=== PATIENT | male | born 1975 | race Caucasian/White ===

== ENCOUNTER 2017-11-01 15:00 | Emergency (ER) | payer OTHER, SELFPAY ==
[2017-11-01] MEDS ORDERED: TYLENOL 325 MG PO STA (15:24)
[2017-11-01] MEDS ORDERED: TYLENOL 325 MG ONE (15:26)
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
[2017-11-01 17:08] VITALS: BP 140/82; PULSE 88; O2SAT 98
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
== END 2017-11-01 17:10 | disposition home or self-care (01) ==
LOC: ED 15:00
DX: S06.0X9A Concussion with loss of consciousness of unspecified duration, initial encounter (principal); S00.83XA Contusion of other part of head, initial encounter; Y35.811A Legal intervention involving manhandling, law enforcement official injured, initial encounter
CPT/HCPCS: 70450; 70486; 99283; 99284; A9270-GY

== ENCOUNTER 2020-02-19 11:35 | Emergency (ER) | payer BC ==
[2020-02-19] MEDS ORDERED: XYLOCAINE 1% HCL 20 ML MDV ONE ×2 (11:55→12:13)
[2020-02-19 12:11] VITALS: BP 148/82; PULSE 84
[2020-02-19 12:13] VITALS: O2SAT 98
--- NOTE | 2020-02-19 12:13 | ERPHSYRPT ---
- History of Present Illness Time Seen by Provider: 02/19/20 11:50 Source: patient Exam Limitations: no limitations Patient Subjective Stated Complaint: Fish hook in leg Triage Nursing Assessment: Patient ambulated back to ED and transferred self to bed. Patient A+O X3. Patient's skin pink, warm and dry. Patient complains of a fish hook in back of right thigh. Patient states the hook was removed but there is still a part inside leg. Small raised area noted. Patient denies pain or discomfort. Physician History: fish hook Left thigh Timing/Duration: today Quality: painful Severity: moderate Location: extremities Possible Causes: no cause identified Associated Symptoms: denies symptoms Allergies/Adverse Reactions: acetaminophen [From Vicodin] Adverse Reaction (Severe, Verified 02/19/20 11:42) Vomiting hydrocodone [From Vicodin] Adverse Reaction (Severe, Verified 02/19/20 11:42) Vomiting Home Medications: Citalopram Hydrobromide [Celexa] 40 mg PO DAILY 02/16/12 [History] lisinopriL [Lisinopril] 1 tab PO DAILY 02/19/20 [History] Hx Tetanus, Diphtheria Vaccination/Date Given: Yes (3 years ago) Hx Influenza Vaccination/Date Given: No Hx Pneumococcal Vaccination/Date Given: No Immunizations Up to Date: Yes Travel Risk - International Travel Have you traveled outside of the country in past 3 weeks: No Have you or anyone close to you been diagnosed with or: No Do your reside in a community with a known COVID-19 case?: Yes If Yes where:: [facility] - Coronavirus Screening Has patient experienced Coronavirus symptoms: No - Review of Systems Constitutional: No Fever, No Chills Eyes: No Symptoms Ears, Nose, & Throat: No Symptoms Respiratory: No Cough, No Dyspnea Cardiac: No Chest Pain, No Edema, No Syncope Abdominal/Gastrointestinal: No Abdominal Pain, No Nausea, No Vomiting, No Diarrhea Genitourinary Symptoms: No Dysuria Musculoskeletal: No Back Pain, No Neck Pain Skin: No Rash Neurological: No Dizziness, No Focal Weakness, No Sensory Changes Psychological: No Symptoms Endocrine: No Symptoms All Other Systems: Reviewed and Negative - Past Medical History Pertinent Past Medical History: No Neurological History: No Pertinent History ENT History: No Pertinent History Cardiac History: No Pertinent History Respiratory History: No Pertinent History Endocrine Medical History: No Pertinent History Musculoskeletal History: No Pertinent History GI Medical History: Hernia History: No Pertinent History Psycho-Social History: No Pertinent History Male Reproductive Disorders: No Pertinent History Other Medical History: pt states he is not bipolar or depressed. His mother passed and he states he took it very hard. he was put on celexa for that not because he has any mental illness. - Past Surgical History Past Surgical History: No - Social History Smoking Status: Current every day smoker How long have you smoked: 5 years Exposure to second hand smoke: Yes Drug Use: none Patient Lives Alone: No Significant Family History: no pertinent family hx - Nursing Vital Signs Nursing Vital Signs: Initial Vital Signs Temperature 98.0 F 02/19/20 11:44 Pulse Rate 109 H 02/19/20 11:44 Respiratory Rate 18 02/19/20 11:44 Blood Pressure 122/83 02/19/20 11:44 O2 Sat by Pulse Oximetry 98 02/19/20 11:44 Pain Scale Pain Intensity 0 - Physical Exam General Appearance: no apparent distress, alert Eye Exam: PERRL/EOMI, eyes nml inspection Ears, Nose, Throat Exam: normal ENT inspection, pharynx normal, moist mucous membranes Neck Exam: normal inspection, non-tender, supple, full range of motion Respiratory Exam: normal breath sounds, lungs clear, No respiratory distress Cardiovascular Exam: regular rate/rhythm, normal heart sounds Gastrointestinal/Abdomen Exam: soft, mass, No tenderness Back Exam: normal inspection, normal range of motion, No CVA tenderness, No vertebral tenderness Extremity Exam: normal inspection, normal range of motion Neurologic Exam: alert, oriented x 3, cooperative, normal mood/affect, sensation nml, No motor deficits Skin Exam: normal color, warm, dry, other (FB embedded in L posterior thigh) SpO2: 98 Procedures - Laceration/Wound Repair Left Lower Thigh Wound Location: Left, upper leg Wound Length (cm): 1 (Fish hook embedded L posterior thigh) Wound's Depth, Shape: superficial Wound Explored: foreign body removed Irrigated: Yes Anesthesia: 1% Lidocaine Volume Anesthetic (ccs): 10 Wound Debrided: minimal Wound Repaired With: sutures Suture Size/Type: 4-0, ethilon Number of Sutures: 1 Layer Closure?: No - Course Nursing assessment & vital signs reviewed: Yes Ordered Tests: Medication Summary Discontinued Medications Generic Name Dose Route Start Last Admin Trade Name Freq PRN Reason Stop Dose Admin Lidocaine HCl Confirm 02/19/20 11:55 Xylocaine 1% Hcl 20 Ml Mdv Administered 02/19/20 11:56 Dose 10 ml .ROUTE .STK-MED ONE - Progress Progress: improved - Departure Departure Disposition: Home Clinical Impression: Fish hook injury of left lower leg Condition: Stable Critical Care Time: No Referrals: JAMARI SIMEON [Primary Care Provider] - Instructions: Removal of Foreign Body in Skin Prescriptions: Cephalexin Mh 500 mg [Keflex 500 mg] 500 mg PO TID #21 capsule
[2020-02-19] MEDS ORDERED: XYLOCAINE 1% HCL 20 ML MDV IJ ONE ×2 (12:18→12:19)
== END 2020-02-19 12:20 | disposition home or self-care (01) ==
LOC: ED 11:35
DX: S71.142A Puncture wound with foreign body, left thigh, initial encounter (principal); W26.8XXA Contact with other sharp object(s), not elsewhere classified, initial encounter
CPT/HCPCS: 12001; 96372; 99283

== ENCOUNTER 2021-01-21 14:00 | Emergency (ER) | payer OTHER ==
[2021-01-21 14:25] LABS: Absolute Neutrophil Ct (ANC) 9.94 (1.4-6.9); BASOPHIL % 0.2 % (0.0-0.4); Basophil (Absolute #) 0.03 (0-0.4); Eosinophil % 1.3 % (0.00-5.0); Eosinophil (Absolute #) 0.18 (0-0.5); Hematocrit 46.7 % (42-50); Hemoglobin 15.1 gm/dl (12.5-18.0); Lymphocyte (Absolute #) 3.01 (1.0-4.6); Lymphocytes % 21.5 % (24.0-44.0); Mean Cell Volume 91.2 fl (78-100); Mean Corpuscular Hemoglobin 29.5 pg (26-32); Mean Corpuscular Hgb Concent. 32.3 g/dl (32-36); Mean Platelet Volume 10.4 fl (7.5-11.0); Monocyte (Absolute #) 0.87 (0.0-1.3); Monocytes % 6.2 % (0.0-12.0); Neutrophil % 70.8 % (36.0-66.0); Platelet Count 322 K/mm3 (150-450); Red Blood Count 5.12 M/mm3 (4.1-5.6); Red Cell Distribution Width 14.5 % (11.5-14.0)
[2021-01-21 14:34] LABS: ALBUMIN 4.2 g/dL (3.5-5.0); ALKALINE PHOSPHATASE 88 U/L (38-126); ANION GAP 13.4 MEQ/L (5-15); BLOOD UREA NITROGEN 15 mg/dL (9-20); CHLORIDE 102 mmol/L (98-107); Calcium 9.4 mg/dL (8.4-10.2); Carbon Dioxide 28 mmol/L (22-30); Creatinine 1 0.93 mg/dL (0.66-1.25); EST GLOMERULAR FILTRATION RATE > 60.0 ML/MIN; Glucose 165 mg/dL (74-106); Potassium 3.8 mmol/L (3.5-5.1); SGOT/AST 26 U/L (17-59); SGPT/ALT 29 U/L (0-50); SODIUM 140 mmol/L (137-145); Total Protein 7.5 g/dL (6.3-8.2)
[2021-01-21 15:19] LABS: Appearance CLEAR (CLEAR); Bilirubin NEGATIVE (NEGATIVE); Blood NEGATIVE Ery/ul (0-5); Glucose NEGATIVE (NEGATIVE); Ketones NEGATIVE (NEGATIVE); Leukocyte Esterase NEGATIVE (NEGATIVE); Mucus SLIGHT /HPF (NEGATIVE); Nitrite NEGATIVE (NEGATIVE); Protein,Urine Dip NEGATIVE (Negative); Specific Gravity 1.018 (1.005-1.025); Urobilinogen NEGATIVE mg/dL (0-1)
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
[2021-01-21 16:22] VITALS: BP 121/57; PULSE 88; O2SAT 96
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
== END 2021-01-21 16:27 | disposition home or self-care (01) ==
LOC: ED 14:00
DX: S38.1XXA Crushing injury of abdomen, lower back, and pelvis, initial encounter (principal); S30.811A Abrasion of abdominal wall, initial encounter; S20.419A Abrasion of unspecified back wall of thorax, initial encounter; W23.0XXA Caught, crushed, jammed, or pinched between moving objects, initial encounter; R07.9 Chest pain, unspecified; R10.9 Unspecified abdominal pain
CPT/HCPCS: 36415; 71250; 74176; 80053; 81001; 82550; 85025; 99284